=== PATIENT | male | born 1975 | race Caucasian/White ===

== ENCOUNTER 2017-01-18 23:44 | Emergency (ER) | payer BC ==
[2017-01-19 01:22] VITALS: BP 159/84
[2017-01-19] MEDS ORDERED: Ketorolac INJ* 30 MG/ML 1 ML VIAL ONE (02:00)
[2017-01-19] MEDS ORDERED: Ketorolac INJ* 30 MG/ML 1 ML VIAL IM ONE (02:07)
[2017-01-19] MEDS: Ketorolac INJ* 30 MG/ML 1 ML VIAL IV PUSH ONE ×2 (02:11→02:14)
[2017-01-19 03:25] LABS: Urine Bacteria Absent (Absent); Urine Bilirubin Negative (Negative); Urine Glucose 3+(>=500 mg/dL) (Negative); Urine Nitrite Negative (Negative)
--- NOTE | 2017-01-19 03:55 | ED ---
Ben Araya Salem, scribed for Devendra Guillen MD on 01/19/17 at 0141 . GI/ HPI - HPI Summary HPI Summary: Patient is a 41 y/o M who presents to the ED with right testicle pain for the past few days, worse since 2329 today. He denies fever, N/V, or changes in urination. He states that he saw his PCP for complaint and was prescribed abx. He also states that current pain is similar to previous episode, but worse. He reports taking Ibuprofen for pain with little to no alleviation. NKDA. - History of Current Complaint Chief Complaint: EDUrogenitalProblems Time Seen by Provider: 01/19/17 00:59 Stated Complaint: RIGHT TESTICLE PAIN Hx Obtained From: Patient Onset/Duration: Started Days Ago, Atraumatic, Still Present Timing: Constant, Lasting Days Severity: Moderate Current Severity: Moderate Pain Intensity: 9 Additional Locations for Males: Testicles Associated Signs and Symptoms: Positive: Negative Aggravating Factor(s): Nothing Alleviating Factor(s): Nothing - Allergy/Home Medications Allergies/Adverse Reactions: Allergies Allergy/AdvReac Type Severity Reaction Status Date / Time No Known Allergies Allergy Verified 01/19/17 00:04 Home Medications: Home Medications Amlodipine Besylate-Atorvastat [Amlodipine Besylate/Atorv 5-20 mg-] 1 tab PO DAILY 01/19/17 [History Confirmed 01/19/17] Apremilast [Otezla] 30 mg PO BID 01/19/17 [History Confirmed 01/19/17] PMH/Surg Hx/FS Hx/Imm Hx Endocrine/Hematology History: Reports: Hx Diabetes Denies: Hx Thyroid Disease Cardiovascular History: Reports: Hx Hypercholesterolemia, Hx Hypertension, Other Cardiovascular Problems/Disorders - Hx HTN Denies: Hx Pacemaker/ICD, Hx Peripheral Vascular Disease Respiratory History: Reports: Hx Sleep Apnea Denies: Hx Asthma GI History: Reports: Hx Gastroesophageal Reflux Disease - ON MEDS FOR PREVENTIVE R/T PAIN MEDS History: Denies: Hx Renal Disease Musculoskeletal History: Reports: Hx Arthritis Denies: Hx Rheumatoid Arthritis, Hx Osteoporosis Sensory History: Reports: Hx Contacts or Glasses Denies: Hx Cataracts, Hx Glaucoma, Hx Hearing Aid Opthamlomology History: Reports: Hx Contacts or Glasses Denies: Hx Cataracts, Hx Glaucoma Neurological History: Reports: Hx Nerve Disease - SHINGLES HX NONE PRESENTLY Denies: Hx Headaches, Hx Seizures, Hx Transient Ischemic Attacks (TIA) Psychiatric History: Reports: Other Psychiatric Issues/Disorders - insomnia Denies: Hx Anxiety, Hx Depression, Hx Panic Disorder - Surgical History Surgery Procedure, Year, and Place: GASTRIC BYPASS 11/2014 [facility] Hx Anesthesia Reactions: No Infectious Disease History: No Infectious Disease History: Denies: Traveled Outside the [place] in Last 30 Days - Family History Known Family History: Negative: Cardiac Disease, Hypertension - Social History Alcohol Use: Rare Alcohol Amount: 1 DRINK Q 3 MONTH Hx Substance Use: No Substance Use Type: Reports: None Hx Tobacco Use: No Smoking Status (MU): Never Smoked Tobacco Review of Systems Negative: Fever Negative: Vomiting, Nausea Genitourinary: Other - No changes in urination. Positive: other - Right testicle pain. All Other Systems Reviewed And Are Negative: Yes Physical Exam Triage Information Reviewed: Yes Vital Signs On Initial Exam: Initial Vitals Temp Pulse Resp BP Pulse Ox 98.2 F 79 16 150/83 99 01/19/17 00:00 01/19/17 00:00 01/19/17 00:00 01/19/17 00:00 01/19/17 00:00 Vital Signs Reviewed: Yes Appearance: Positive: Well-Appearing, Pain Distress - mild discomfort Skin: Positive: Warm Head/Face: Positive: Normal Head/Face Inspection Eyes: Positive: SOTERO ENT: Positive: Hearing grossly normal Neck: Positive: Supple Respiratory/Lung Sounds: Positive: Breath Sounds Present Cardiovascular: Positive: RRR Abdomen Description: Positive: Nontender, Soft. Negative: CVA Tenderness (R), CVA Tenderness (L) Bowel Sounds: Positive: Present Male Genital Exam: Positive: normal genitalia, testicular tenderness (R) - mild. Negative: testicular tenderness (L) Musculoskeletal: Positive: Strength/ROM Intact Neurological: Positive: Normal Gait - York Coma Scale Coma Scale Total: 15 Diagnostics - Vital Signs Vital Signs Temp Pulse Resp BP Pulse Ox 01/19/17 01:19 99.2 F 63 16 159/84 100 01/19/17 00:00 98.2 F 79 16 150/83 99 - Laboratory Lab Results: Lab Results 01/19/17 Range/Units 02:45 Urine Color Yellow Urine Appearance Clear Urine pH 5.0 (5-9) Ur Specific [place] 1.021 (1.010-1.030) Urine Protein Negative (Negative) Urine Ketones Negative (Negative) Urine Blood 1+ H (Negative) Urine Nitrate Negative (Negative) Urine Bilirubin Negative (Negative) Urine Urobilinogen Negative (Negative) Ur Leukocyte Esterase Negative (Negative) Urine WBC (Auto) Trace(0-5/hpf) (Absent) Urine RBC (Auto) 1+(3-5/hpf) H (Absent) Ur Squamous Epith Cells Present H (Absent) Urine Bacteria Absent (Absent) Urine Glucose 3+(>=500 mg/dl) H (Negative) Lab Statement: Any lab studies that have been ordered have been reviewed, and results considered in the medical decision making process. - Ultrasound No standard instances Ultrasound Interpretation Completed By: Radiologist - Impression: Normal appearance of both testis and both epididymides with normal vascular flow seen bilaterally. No hydrocele seen. Small left varicocele noted. Re-Evaluation - Re-Evaluation First Eval Re-Evaluation Time: 03:56 Comment: Reviewed imaging results d/w pt GIGU Course/Dx - Course Course Of Treatment: 41 y/o M presents with right testicle pain for the past few days, worse since 0 today. He denies fever, N/V, or changes in urination. He states that he saw his PCP for complaint and was prescribed abx. He also states that current pain is similar to previous episode, but worse. Pt received Toradol in ED course. US shows, per radiology, Impression: Normal appearance of both testis and both epididymides with normal vascular flow seen bilaterally. No hydrocele seen. Small left varicocele noted. Pt will be discharged to follow up with urology. - Diagnoses Provider Diagnoses: Testicular pain Discharge - Discharge Plan Condition: Stable Disposition: HOME Patient Education Materials: Testicle Pain (ED) Referrals: Fco Richard MD [Primary Care Provider] - Brian Javed MD [Medical Doctor] - Additional Instructions: Please follow up with Dr. Javed. The documentation as recorded by the Ben scott Salem accurately reflects the service I personally performed and the decisions made by me, Devendra Guillen MD.
--- NOTE | 2017-01-19 09:28 | RAD ---
Indication: Right testis pain Real-time sonography of the right testis was performed. The right testis measures 3.7 x 2.4 x 2.4 cm. No intratesticular masses are noted. Normal flow is noted in the right testis. The epididymis measures 10 x 14 mm. No hydrocele is noted. The left testis measures 3.8 x 2.6 x 2.3 cm. Normal flow is noted in the left testis. Epididymis measures 12 x 11 mm and appears slightly heterogeneous. However no evidence of hypervascularity is noted. Tubular vascular structures noted in the left testis likely represents a small varicocele. IMPRESSION: Findings consistent with small left varicocele. No intratesticular masses are noted.
== END 2017-01-19 04:35 | disposition home or self-care (01) ==
LOC: ED 23:44
DX: N50.811 Right testicular pain (principal); E11.9 Type 2 diabetes mellitus without complications; E78.00 Pure hypercholesterolemia, unspecified; I10 Essential (primary) hypertension; K21.9 Gastro-esophageal reflux disease without esophagitis; Z98.84 Bariatric surgery status
CPT/HCPCS: 76870; 81003; 81015; 96372; 99282; J1885

== ENCOUNTER 2017-01-22 07:21 | Day surgery (SDC) | payer BC ==
[2017-01-22] MEDS ORDERED: Iohexol 180 (CONTRAST) 10 ML SDV IV ONE (08:44)
--- NOTE | 2017-01-22 09:39 | HP ---
CC: Dr. Richard* HISTORY AND PHYSICAL: DATE OF PLANNED ADMISSION AND SURGERY: 01/22/17 HISTORY OF PRESENT ILLNESS: Mr. Garcia is a 41-year-old white male who is admitted with a 1-cm calculus in the proximal right ureter for cystoscopy and placement of right ureteral stent. Mr. Garcia's symptoms started about 1 month ago when he had recurrent episodes of acute right testicular pain. He was treated as a case of epididymitis with a course of Cipro. The pain improved spontaneously. The same pain recurred about 4 days ago and was severe enough for him to go to the [facility] [place] emergency room. There was no associated flank pain or nausea or vomiting. His urinalysis shows +1 blood and was negative otherwise. The patient was worked up for the testicular pain with a scrotal ultrasound, which was normal. The patient was sent home from the emergency room with pain medications. He presented to our office for evaluation. His urinalysis was negative. His exam and in particular the scrotal exam was completely normal. Because of suspicion that his right testicular pain is referred in nature, he had a renal ultrasound in the office. The study showed a 1-cm calculus in the proximal right ureter just distal to the ureteropelvic junction associated with mild to moderate right hydronephrosis and decreased right ureteral jets. The left kidney looked normal. PAST MEDICAL HISTORY AND SYSTEMIC REVIEW: The patient has chronic arthritis and he is maintained on methotrexate weekly, Otezla 30 mg daily, naproxen 400 mg twice a day. He has history of hypertension, on Lotrel 5-20 mg daily. He has history of ADD and depression and is maintained on Adderall and Wellbutrin. He is on tramadol ER as needed. He denies any cardiac or pulmonary diseases or symptoms. ALLERGIES: He denies any allergies to medications. PHYSICAL EXAMINATION GENERAL: Moderately overweight, otherwise healthy looking white male who seems to be in moderate pain. VITAL SIGNS: Blood pressure 140/88, pulse of 94, temperature 96.7. LUNGS: Clear. HEART: Regular and rhythmic, no murmurs. ABDOMEN: Soft. No masses and no CVA tenderness. GENITALIA: External genitalia is circumcised. No penile lesions. Normal testes. No testicular masses are felt. No inguinal hernias noted. LABORATORY DATA: Urinalysis is negative. IMPRESSION: Recurrent episodes of acute right testicular pain, which is referred pain from his 1 cm obstructing calculus at the right ureteropelvic junction. PLAN: Cystoscopy and placement of right ureteral stent. The patient will need another procedure, most likely shockwave lithotripsy at a later date for definitive treatment of the stone. [id number]/CPS #: [id number] MTDD
[2017-01-22] MEDS ORDERED: cefTRIAXone VIAL(*) 1,000 MG VIAL ONE (09:48)
--- NOTE | 2017-01-22 10:10 | RAD ---
Amended report to correct patient account number. INDICATION: RIGHT side ureteral stent placement. Nephrolithiasis. COMPARISON: No relevant prior exams available on the [facility] [place] [place] PACS for comparison. TECHNIQUE: 10 seconds fluoroscopy. FINDINGS: RIGHT retrograde pyelogram demonstrates mild calyceal blunting. RIGHT ureteral stent placed with decompression of the collecting system. IMPRESSION: Procedural fluoroscopy. CPT II Codes: 6045F MTDD
[2017-01-22 10:16] VITALS: BP 122/72
[2017-01-22] MEDS ORDERED: Tamsulosin CAP* 0.4 MG PO ONE (11:00)
--- NOTE | 2017-01-22 11:19 | RAD ---
Indication: Postop RIGHT ureteral stent placement. Comparison: Intraoperative fluoroscopic spot images of the same date. Technique: Supine view of the abdomen. Report: Unremarkable bowel gas pattern. Moderate stool in the colon without significant rectal distension. RIGHT ureteral stent in place. Typical partial obscuration of the renal fossa due to bowel contents. 1.0 cm ovoid density at the level of the lower pole calyx of the RIGHT kidney may represent a stone or residual pyelographic phase contrast within a calyx. Pelvic phleboliths noted. Unremarkable soft tissue contours. IMPRESSION: RIGHT ureteral stent in place. 1.0 cm ovoid density at the level of the lower pole calyx of the RIGHT kidney may represent a stone or residual pyelographic phase contrast within a calyx.
--- NOTE | 2017-01-22 12:19 | OP ---
CC: Dr. Fco Richard; Dr. Brian Javed * DATE OF OPERATION: 01/22/17 - [facility] DATE OF : 73 SURGEON: Brian Javed MD ANESTHESIOLOGIST: Enrico Browne DO ANESTHESIA: Intravenous sedation. PRE-OP DIAGNOSES: 1. Right hydronephrosis. 2. Obstructing calculus, right proximal ureter. POST-OP DIAGNOSES: 1. Right hydronephrosis. 2. Obstructing calculus, right proximal ureter. OPERATIVE PROCEDURE: Cystoscopy, right retrograde pyelogram, right ureteral calculus manipulation, and right stent insertion. INDICATIONS: Rd Garcia is a 41-year-old gentleman, who was evaluated and noted to have obstructing calculus in the right proximal ureter causing severe right flank pain. He is being brought in for urgent right stent insertion to be followed at some point in the near future by lithotripsy. COMPLICATIONS: None. STENT USED: 6-New Zealander stent, right ureter. POSTOPERATIVE CONDITION: Stable. DESCRIPTION OF PROCEDURE: After administration of intravenous sedation, the patient was placed in dorsal lithotomy position. Sequential compression devices were in place and functioning. Initial cystoscopy revealed a normal- appearing urethra and oexv-zl-pbbovgok enlargement predominantly of the median lobe of the prostate and normal-appearing bladder. Hydrophilic Glidewire was introduced and advanced under fluoroscopic monitoring. The calculus was noted to be obstructing at the level of the ureteropelvic junction and the wire was manipulated above the point of obstruction. Retrograde pyelogram revealed right hydronephrosis with a dilated renal pelvis and after the calculus had been manipulated proximally, a 6- New Zealander stent was introduced and positioned under fluoroscopy with good proximal and distal positioning obtained. The bladder was emptied. The patient tolerated the procedure satisfactorily and was transferred back to the recovery area in stable condition. [id number]/[facility] #: [id number] [facility]
== END 2017-01-22 11:00 | disposition home or self-care (01) ==
LOC: OR 07:21
PROVIDERS: ATTEND Urology
DX: N13.2 Hydronephrosis with renal and ureteral calculous obstruction (principal); Z96.0 Presence of urogenital implants; M19.90 Unspecified osteoarthritis, unspecified site; I10 Essential (primary) hypertension; F32.9 Major depressive disorder, single episode, unspecified; F98.8 Other specified behavioral and emotional disorders with onset usually occurring in childhood and adolescence
CPT/HCPCS: 74000; 74420; C1876; J0696

== ENCOUNTER 2017-02-04 08:14 | Day surgery (SDC) | payer BC ==
[~2017-02-04 08:14] MED LIST: Buffered Lidocaine 0.9% SYRIN* 5 ML/SYR SYRINGE INTRADERM ONE; Dexamethasone IV* 4 MG/ML 1 ML (4 MG) IV SLOW PU ONE; Famotidine IV* 10 MG/ML 2 ML (20 mg) IV ONE
[2017-02-04] MEDS ORDERED: Dexamethasone IV* 4 MG/ML 1 ML (4 MG) ONE (08:18)
[2017-02-04] MEDS ORDERED: Famotidine IV* 10 MG/ML 2 ML (20 mg) ONE (08:18)
[2017-02-04] MEDS ORDERED: cefTRIAXone(*) 2 GM ADDV.VIAL IVPB ONE (08:19)
[2017-02-04] MEDS ORDERED: Midazolam* 1 MG/ML 5 ML VIAL (5 MG) ONE (10:41)
[2017-02-04] MEDS ORDERED: fentaNYL* 50 MCG/ML 2 ML VIAL (100 MCG VIAL) ONE ×2 (10:41→11:31)
[2017-02-04] MEDS ORDERED: Ondansetron INJ* 2 MG/ML VIAL IV PRN (10:55)
[2017-02-04] MEDS ORDERED: oxyCODONE/Acetamin 5/325 MG* TAB PO PRN (10:55)
[2017-02-04] MEDS ORDERED: Ondansetron INJ* 2 MG/ML VIAL ONE (11:06)
[2017-02-04] MEDS ORDERED: Ketorolac INJ* 30 MG/ML 1 ML VIAL ONE (11:06)
[2017-02-04] MEDS ORDERED: Propofol* 10 MG/ML 20 ML BTL IV PUSH ONE ×2 (11:06→11:51)
[2017-02-04] MEDS ORDERED: KETAMINE HCL* 50 MG/ML 10 ML VIAL ONE (11:32)
[2017-02-04] MEDS ORDERED: Lidocaine 2% JELLY* 6 ML JELLY TOPICAL ONE (11:42)
[2017-02-04] MEDS ORDERED: Lidocaine 2% JELLY* 20 ML (for OR use) ONE (11:46)
[2017-02-04 12:32] VITALS: BP 131/80
--- NOTE | 2017-02-05 12:18 | OP ---
CC: Dr. Fco Richard * DATE OF OPERATION: 02/04/17 - [facility] DATE OF : 73 SURGEON: Cedrick Vuong MD ANESTHESIOLOGIST: Nic Sanchez MD ANESTHESIA: IV sedation with MAC. PRE-OP DIAGNOSES: 1. Right renal calculus (1 cm). 2. Status post placement right ureteral stent. POST-OP DIAGNOSES: 1. Right renal calculus (1 cm). 2. Status post placement right ureteral stent. OPERATIVE PROCEDURE: Shock wave lithotripsy of right renal calculus. INDICATIONS: Mr. Garcia is a 41-year-old white male, who was admitted on because of an obstructing 1-cm proximal right ureteral calculus. He had placement of right ureteral stent. Postoperative imaging showed the stone to have migrated into a lower pole infundibulum or lower pole calyx. He is now admitted for the above procedure. PATHOLOGY: Fluoroscopy showed the right ureteral stent to be in good position and a 1-cm radiopaque calculus in the lower pole calyx or infundibulum of the Rt kidney. No other abnormal calcifications were seen. DESCRIPTION OF PROCEDURE: The patient was placed in the supine position on the shock wave lithotripsy table. Under intravenous sedation with anesthesia monitoring, the right renal calculus was visualized in both the PA and the oblique x-ray views and the position of the stone and of the generator were adjusted to have the stone in the focus of the shock waves. A total of 2,400 shocks were then delivered at a rate of 90 shocks per minute. A 3- minute break was taken after the initial 300 shocks. The proper positioning and fragmentation of the stone were monitored periodically. At the completion of the treatment, the stone seemed to have become larger and less dense. However, I did not feel comfortable enough with the degree of fragmentation to remove the stent. The patient tolerated the procedure well and left the operating room in good condition. The plan is to obtain a KUB in about 2 days and the patient will be seen in the office. Decision will be made regarding the stent removal. [id number]/CPS #: [id number] MTDD
== END 2017-02-04 12:35 | disposition home or self-care (01) ==
LOC: OR 08:14
PROVIDERS: ATTEND Urology
DX: N20.0 Calculus of kidney (principal); E66.9 Obesity, unspecified; I48.91 Unspecified atrial fibrillation; I10 Essential (primary) hypertension; G47.33 Obstructive sleep apnea (adult) (pediatric); E11.9 Type 2 diabetes mellitus without complications
CPT/HCPCS: J0696; J1100; J1885; J2250; J2405; J2704; J3010

== ENCOUNTER → 2017-02-15 14:55 | Day surgery (SDC) | payer BC ==
--- NOTE | 2017-02-15 13:04 | HP ---
CC: Dr. Richard * HISTORY AND PHYSICAL: DATE OF PLANNED ADMISSION AND SURGERY: 02/15/17 HISTORY OF PRESENT ILLNESS: Mr. Garcia is a 41-year-old white male, who is admitted with distal right ureteral calculus for cystoscopy, right ureteroscopy , laser lithotripsy, and right ureteral stent placement. Mr. Garcia presented about a month ago with symptoms of right renal colic and was found to have a 1 cm calculus in the proximal right ureter. On , he had urgent placement of right ureteral stent. The stone migrated into the lower pole garry of the right kidney. On 02/04/17, he underwent shockwave lithotripsy of the right renal calculus. It was not clear whether the stone fragmented at the end of the treatment. He was then evaluated in our office and had a renal ultrasound, which was suggestive of fragmentation of the stone. The right ureteral stent was removed on 02/06/17. The patient presented yesterday to the office complaining of recurrent episodes of right renal colic. He did not have any fever or chills. KUB yesterday showed a 1 cm calculus in the proximal right ureter and another 8 mm calculus in the right kidney. The patient was managed conservatively with alpha blockers and pain medications and he was reevaluated today with another KUB. The KUB showed the stone to be located at the right ureterovesical junction. The patient however has been having recurrent episodes of right renal colic and has been taking narcotics every 6 hours. Because of the size of the stone (1 cm) and the fact it is at the right uretero- vesical junction and it is unlikely to pass spontaneously, plan is to proceed with the above procedure. PAST MEDICAL HISTORY AND SYSTEM REVIEW: The patient had history of obesity and had a gastric bypass as bariatric surgery. He has a history of hypertension, maintained on Lotrel 5/20 mg daily. He has a history of ADD and depression and is maintained on Adderall and Wellbutrin. Because of his chronic arthritis, he is maintained on weekly methotrexate and on Otezla 30 mg daily and Naprosyn 400 mg twice a day. He denies any cardiac or pulmonary diseases or symptoms. ALLERGIES: He denies any allergies to medications. PHYSICAL EXAMINATION GENERAL: Moderately overweight white male, who is in moderate pain. VITAL SIGNS: Blood pressure 150/90, pulse of 100, temperature 96.8. LUNGS: Normal. HEART: Normal. ABDOMEN: He has peelycev-tf-umtaji right CVA tenderness and right upper quadrant tenderness. IMPRESSION: A 1 cm calculus at the right ureterovesical junction, status post shockwave lithotripsy 2 weeks ago. Probable residual right renal calculus. PLAN: Considering the size of the stone and that it is located at the UVJ, it is unlikely to pass spontaneously. Considering the patient is having recurrent episodes of acute pain, the plan is to proceed with right ureteroscopy, laser lithotripsy, and left ureteral stent placement. Dr. Javed is on-call for the practice today and he will be doing the procedure. [id number]/CPS #: [id number] MTDD
[~2017-02-15 14:55] MED LIST changes: -Buffered Lidocaine 0.9% SYRIN* 5 ML/SYR SYRINGE INTRADERM ONE; +Buffered Lidocaine 0.9% SYRIN* 5 ML/SYR SYRINGE ONE; +DEXAMETHASONE IVPB ONE; -Dexamethasone IV* 4 MG/ML 1 ML (4 MG) IV SLOW PU ONE; +Dexamethasone IV* 4 MG/ML 1 ML (4 MG) ONE; -Famotidine IV* 10 MG/ML 2 ML (20 mg) IV ONE; +Famotidine IV* 10 MG/ML 2 ML (20 mg) IV SLOW PU ONE; +Famotidine IV* 10 MG/ML 2 ML (20 mg) ONE; +HYDROcodone/ACETAMIN 5-325 MG* 1 TAB PO PRN; +Iohexol 180 (CONTRAST) 10 ML SDV IV ONE; +Lidocaine 2% PF * 5 ML VIAL ONE; +Midazolam* 1 MG/ML 5 ML VIAL (5 MG) ONE; +NS 0.9% IVPB ONE; +Ondansetron INJ* 2 MG/ML VIAL ONE; +PROCHLORPERAZINE INJ 5 MG/ML 2 ML VIAL IV PRN; +Propofol* 10 MG/ML 20 ML BTL IV PUSH ONE; +Tamsulosin CAP* 0.4 MG ONE; +fentaNYL* 50 MCG/ML 2 ML VIAL (100 MCG VIAL) IV PRN; +fentaNYL* 50 MCG/ML 2 ML VIAL (100 MCG VIAL) ONE; +oxyCODONE/Acetamin 5/325 MG* TAB PO PRN
[2017-02-15 18:32] VITALS: BP 154/89
--- NOTE | 2017-02-15 19:42 | RAD ---
INDICATION: The patient is status post right ureteral stent placement COMPARISON: Similar examination dated 1117 acquired before stent placement TECHNIQUE: 2 views the abdomen were obtained. FINDINGS: There has been interval placement of an anatomically aligned right ureteral stent. No large calcifications are identified. IMPRESSION: ANATOMIC ALIGNMENT OF RIGHT URETERAL STENT.
--- NOTE | 2017-02-15 19:44 | RAD ---
CPT II Codes: 6045F INDICATION: Right-sided hydronephrosis TECHNIQUE: Intraoperative fluoroscopy was provided during right retrograde pyelogram with stent placement. FINDINGS: 4 spot films depict retrograde pyelography showing mild hydronephrosis and anatomic placement of a right ureteral stent.. Fluoroscopy time: 4 seconds IMPRESSION: As above.
--- NOTE | 2017-02-16 05:32 | OP ---
CC: Dr. Fco Richard * DATE OF OPERATION: 02/15/17 - [facility] DATE OF : 73 SURGEON: Brian Javed MD ANESTHESIOLOGIST: Dr. Shetty. ANESTHESIA: General. PRE-OP DIAGNOSES: 1. Right hydronephrosis. 2. Calculus, right ureter. POST-OP DIAGNOSES: 1. Right hydronephrosis. 2. Calculus, right ureter. OPERATIVE PROCEDURE: Cystoscopy, right retrograde pyelogram, right ureteroscopy and laser lithotripsy, removal of calculus fragments from right ureter and right stent insertion. COMPLICATIONS: None. POSTOPERATIVE CONDITION: Stable. OPERATIVE FINDINGS: Fairly large hard calculus right distal ureter (8 to 9 mm) with right hydronephrosis and proximal hydroureter. STENT USED: 6-Italian stent, right ureter. INDICATIONS: Rd Garcia is a 41-year-old gentleman who had previously undergone stent insertion and lithotripsy for an obstructing calculus. He was recently evaluated and noted to have a fairly large calculus in the right distal ureter. He was given an option of trying to continue conservative management; but because of increased pain, he opted for and is now being brought in for right ureteroscopy. DESCRIPTION OF PROCEDURE: After induction of general anesthesia, the patient was placed in dorsal lithotomy position. Sequential compression devices were in place and functioning. Initial cystoscopy revealed a normal-appearing urethra. The bladder was examined and was normal. There was some inflammatory response noted surrounding the right orifice, but the bladder was otherwise unremarkable. A guidewire was introduced into the right ureter. Retrograde pyelogram revealed right hydronephrosis with proximal hydroureter. A 6-Italian semirigid ureteroscope was introduced and advanced under direct vision. A few centimeters above the ureterovesical junction, a 9 to 10 mm calculus was noted. Using a 550 micron Holmium laser, this was fragmented. The stone was fairly large and very hard and after about 15 to 20 minutes of laser lithotripsy, it eventually fragmented into multiple pieces. Using a 3-pronged grasper, all of the pieces were successfully retrieved. A 6-Italian stent was introduced and positioned under fluoroscopy with good proximal and distal positioning obtained. The bladder was emptied. The patient tolerated the procedure satisfactorily and was transferred back to the recovery area in stable condition. [id number]/[facility] #: [id number] [facility]
== END | disposition home or self-care (01) ==
LOC: OR 14:55
PROVIDERS: ATTEND Urology
DX: N13.2 Hydronephrosis with renal and ureteral calculous obstruction (principal); I10 Essential (primary) hypertension; M06.9 Rheumatoid arthritis, unspecified
CPT/HCPCS: 74000; 74420; 82365; 88300; C1876; J1100; J1580; J2250; J2405; J2704; J3010

== ENCOUNTER 2017-08-19 07:34 | Day surgery (SDC) | payer BC ==
[~2017-08-19 07:34] MED LIST changes: +Buffered Lidocaine 0.9% SYRIN* 5 ML/SYR SYRINGE INTRADERM ONE; -Buffered Lidocaine 0.9% SYRIN* 5 ML/SYR SYRINGE ONE; -DEXAMETHASONE IVPB ONE; -Dexamethasone IV* 4 MG/ML 1 ML (4 MG) ONE; +Famotidine IV* 10 MG/ML 2 ML (20 mg) IV ONE; -Famotidine IV* 10 MG/ML 2 ML (20 mg) IV SLOW PU ONE; -Famotidine IV* 10 MG/ML 2 ML (20 mg) ONE; -HYDROcodone/ACETAMIN 5-325 MG* 1 TAB PO PRN; -Iohexol 180 (CONTRAST) 10 ML SDV IV ONE; -Lidocaine 2% PF * 5 ML VIAL ONE; -Midazolam* 1 MG/ML 5 ML VIAL (5 MG) ONE; -NS 0.9% IVPB ONE; -Ondansetron INJ* 2 MG/ML VIAL ONE; -PROCHLORPERAZINE INJ 5 MG/ML 2 ML VIAL IV PRN; -Propofol* 10 MG/ML 20 ML BTL IV PUSH ONE; -Tamsulosin CAP* 0.4 MG ONE; -fentaNYL* 50 MCG/ML 2 ML VIAL (100 MCG VIAL) IV PRN; -fentaNYL* 50 MCG/ML 2 ML VIAL (100 MCG VIAL) ONE; -oxyCODONE/Acetamin 5/325 MG* TAB PO PRN
[2017-08-19] MEDS ORDERED: Famotidine IV* 10 MG/ML 2 ML (20 mg) ONE (07:38)
[2017-08-19] MEDS ORDERED: ceFAZolin 2 GM PREMIX (*) 2 GM/50 ML BAG IVPB ONE (07:39)
[2017-08-19] MEDS ORDERED: Buffered Lidocaine 0.9% SYRIN* 5 ML/SYR SYRINGE ONE (07:39)
[2017-08-19] MEDS ORDERED: Ketorolac INJ* 30 MG/ML 1 ML VIAL ONE (07:45)
[2017-08-19] MEDS ORDERED: Midazolam* 1 MG/ML 2 ML VIAL (2 MG) ONE ×2 (07:45→08:52)
[2017-08-19] MEDS ORDERED: Lidocaine 2% PF * 5 ML VIAL ONE (07:45)
[2017-08-19] MEDS ORDERED: fentaNYL* 50 MCG/ML 2 ML VIAL (100 MCG VIAL) ONE (07:45)
[2017-08-19] MEDS ORDERED: Ondansetron INJ* 2 MG/ML VIAL ONE (07:45)
[2017-08-19] MEDS ORDERED: Propofol* 10 MG/ML 20 ML BTL IV PUSH ONE (07:45)
[2017-08-19] MEDS ORDERED: Naloxone* 0.4 MG/ML 1 ML VIAL IV PRN (08:29)
[2017-08-19] MEDS ORDERED: DiMENhydriNATE IV* 50 MG/ML VIAL IV PUSH PRN (08:29)
[2017-08-19] MEDS ORDERED: Acetaminophen TAB* 325 MG PO PRN (08:29)
[2017-08-19] MEDS ORDERED: Bupivacaine 0.25% SDV* 30 ML ONE (08:31)
[2017-08-19 09:54] VITALS: BP 110/62
--- NOTE | 2017-08-24 12:46 | OP ---
DATE OF OPERATION: 08/19/17 - [facility] DATE OF : 73 SURGEON: Darwin Huynh MD. GREY IRON MOLDER: JUAN A Cespedes. ANESTHESIOLOGIST: Radha Andrade MD ANESTHESIA: Local MAC. PRE-OP DIAGNOSIS: Left de Quervain's tenosynovitis. POST-OP DIAGNOSIS: Left de Quervain's tenosynovitis. OPERATIVE PROCEDURE: Left de Quervain's release. INDICATIONS: Rd has had an injection. He got 100% better. The tendinitis has come back. We talked about risks and benefits. He wanted to proceed. ESTIMATED BLOOD LOSS: 2 mL. COMPLICATIONS: None. FINDINGS: As expected. DESCRIPTION OF PROCEDURE: Rd was seen in the preoperative holding area, the correct side, site, and procedure were identified. We came back to the operating room where the arm was prepped and draped in usual fashion. A time- out was performed. I made a 2-cm transverse incision just proximal to the radial styloid. Dissection was carried down bluntly and full thickness flaps were raised off of the tendon sheath. The tendon sheath was opened along the dorsal aspect in line with the tendons. The release was completed distally and proximally with the tenotomy scissors and tenosynovitis was excised. There was a small ganglion on the tendon sheath that was excised as well. The accessory compartment was released and the septum excised. Once there was absolutely no compression on the tendons, we irrigated out the wounds. Skin was closed with 4 -0 Monocryl suture and Steri- Strips. Wound was dressed with Xeroform, 4 x 4s, and sterile Webril, and an bandage. He was taken to recovery room in stable condition. [id number]/[facility] #: [id number] [facility]
== END 2017-08-19 09:57 | disposition home or self-care (01) ==
LOC: OR 07:34
PROVIDERS: ATTEND Orthopaedic Surgery Hand Surgery
DX: M65.4 Radial styloid tenosynovitis [de Quervain] (principal); I10 Essential (primary) hypertension; G47.33 Obstructive sleep apnea (adult) (pediatric); L40.50 Arthropathic psoriasis, unspecified
CPT/HCPCS: J0690; J1885; J2250; J2405; J2704; J3010

== ENCOUNTER 2020-11-25 08:36 | Inpatient (IN) ==
[2020-11-25 09:10] LABS: ABS Basophils 0.1 10^3/ul (0-0.2); ABS Eosinophils 0.1 10^3/ul (0-0.6); ABS Lymphocytes 1.5 10^3/ul (1.0-4.8); ABS Monocytes 0.5 10^3/ul (0-0.8); ABS Neutrophils 6.3 10^3/ul (1.5-7.7); Eosinophil % 1.6 %; Hematocrit 25 % (42-52); Hemoglobin 8.6 g/dL (14.0-18.0); Mean Corpuscular HGB Conc 34 g/dL (31-36); Mean Corpuscular Hemoglobin 31 pg (27-31); Mean Corpuscular Volume 91 fL (80-94); Mean Platelet Volume 6.8 fL (7.4-10.4); Platelet Count 336 10^3/uL (150-450); Red Cell Distribution Width 14 % (10-15); White Blood Count 8.6 10^3/uL (3.5-10.8)
[2020-11-25] MEDS ORDERED: NS 0.9% 1000 ml BAG 1,000 ML IV ONE (09:23)
[2020-11-25 09:27] LABS: ALT 21 U/L (7-52); AST 20 U/L (13-39); Albumin 3.7 g/dL (3.2-5.2); Albumin/Globulin Ratio 1.6 (1-3); Alkaline Phosphatase 84 U/L (35-149); Blood Urea Nitrogen 36 mg/dL (6-24); CO2 Carbon Dioxide 25 mmol/L (22-32); Calcium 8.6 mg/dL (8.6-10.3); Chloride 106 mmol/L (101-111); EGFR African American 71.3 (>60); EGFR Non-African American 58.9 (>60); Globulin 2.3 g/dL (2-4); Glucose 291 mg/dL (70-100); Sodium 137 mmol/L (135-145)
[2020-11-25 09:28] LABS: Anion Gap 6 mmol/L (2-11); INR 1.03 (0.82-1.09); Potassium 5.1 mmol/L (3.5-5.0)
[2020-11-25] MEDS ORDERED: Iodixanol (CONTRAST) 320 MG/ML 100 ML SDV IV ONE (09:58)
[2020-11-25] MEDS ORDERED: Dextrose 50% Syringe 50 ml 25 GM/50 ML SYRINGE IV PUSH PRN (11:43)
[2020-11-25] MEDS ORDERED: Ondansetron 4 mg VIAL 2 MG/ML 2 ml VIAL IV PRN (11:44)
[2020-11-25] MEDS ORDERED: Lactated Ringers 1000 ml BAG 1,000 ML IV ONE (11:45)
[2020-11-25 16:08] LABS: Hematocrit 22 % (42-52); Hemoglobin 7.3 g/dL (14.0-18.0)
[2020-11-25] MEDS ORDERED: Pantoprazole VIAL 40 MG VIAL IV ONE ×2 (17:17→17:45)
[2020-11-25] MEDS: Pantoprazole 80 mg in NS BAG 80 MG/250 ML BAG IV SCH (18:26)
[2020-11-25 21:52] LABS: Hematocrit 20 % (42-52); Hemoglobin 6.9 g/dL (14.0-18.0); Mean Corpuscular HGB Conc 35 g/dL (31-36); Mean Corpuscular Hemoglobin 31 pg (27-31); Mean Corpuscular Volume 91 fL (80-94); Mean Platelet Volume 7.1 fL (7.4-10.4); Platelet Count 249 10^3/uL (150-450); Red Blood Count 2.19 10^6 /uL (4.18-5.48); Red Cell Distribution Width 15 % (10-15); White Blood Count 6.8 10^3/uL (3.5-10.8)
[2020-11-26] MEDS: Pantoprazole 80 mg in NS BAG 80 MG/250 ML BAG IV SCH ×2 (04:17→15:43)
[2020-11-26] MEDS: LACTATED RINGERS 1000 ML BAG IV ONE ×2 (07:07→11:21)
[2020-11-26 07:22] LABS: ABS Eosinophils 0.2 10^3/ul (0-0.6); ABS Lymphocytes 1.4 10^3/ul (1.0-4.8); ABS Monocytes 0.4 10^3/ul (0-0.8); ABS Neutrophils 3.8 10^3/ul (1.5-7.7); Eosinophil % 2.7 %; Hematocrit 23 % (42-52); Hemoglobin 7.8 g/dL (14.0-18.0); Lymphocyte % 24.7 %; Mean Corpuscular HGB Conc 34 g/dL (31-36); Mean Corpuscular Hemoglobin 31 pg (27-31); Mean Corpuscular Volume 90 fL (80-94); Mean Platelet Volume 8.1 fL (7.4-10.4); Platelet Count 244 10^3/uL (150-450); Red Blood Count 2.51 10^6 /uL (4.18-5.48); Red Cell Distribution Width 15 % (10-15); White Blood Count 5.7 10^3/uL (3.5-10.8)
[2020-11-26 07:32] LABS: Blood Urea Nitrogen 25 mg/dL (6-24); CO2 Carbon Dioxide 21 mmol/L (22-32); Calcium 8.1 mg/dL (8.6-10.3); Chloride 109 mmol/L (101-111); EGFR African American 89.1 (>60); EGFR Non-African American 73.6 (>60); Glucose 126 mg/dL (70-100); Sodium 139 mmol/L (135-145)
[2020-11-26 07:35] LABS: Anion Gap 9 mmol/L (2-11)
[2020-11-26] MEDS ORDERED: Midazolam 10 mg/10 ml VIAL 1 mg/ml 10 ml VIAL (10 mg) ONE (10:33)
[2020-11-26] MEDS ORDERED: fentaNYL 100 mcg/2 ml 50 MCG/ML VIAL ONE (10:34)
[2020-11-26 15:00] LABS: Hematocrit 24 % (42-52)
[2020-11-26] MEDS ORDERED: PEG 3000 GI LAVAGE 1 GALLON PO ONE (16:30)
[2020-11-26 23:08] LABS: Hematocrit 23 % (42-52); Hemoglobin 7.9 g/dL (14.0-18.0)
[2020-11-27] MEDS: Pantoprazole 80 mg in NS BAG 80 MG/250 ML BAG IV SCH ×2 (02:32→17:02)
[2020-11-27 05:36] LABS: Hematocrit 21 % (42-52); Hemoglobin 7.1 g/dL (14.0-18.0)
[2020-11-27 05:55] LABS: Calcium 8.1 mg/dL (8.6-10.3); EGFR African American 107.2 (>60); EGFR Non-African American 88.6 (>60); Potassium 4.1 mmol/L (3.5-5.0)
[2020-11-27 11:39] LABS: % Iron Saturation 37 % (15-55); Iron 118 ug/dL (50-212); Total Iron Binding Capacity 323 mcg/dL (250-450); Transferrin 231 mg/dL (203-362); Unsaturated Iron Binding < 308 ug/dL
[2020-11-27 12:00] LABS: Ferritin 38.5 ng/mL (24-336)
[2020-11-27] MEDS ORDERED: Iron Sucrose 200 MG in NS 0.9% 100 ml BAG 100 ML IVPB ONE (12:30)
[2020-11-27] MEDS ORDERED: NS 0.9% 1000 ml BAG 1,000 ML IV ONE (15:27)
[2020-11-27] MEDS ORDERED: Lactated Ringers 1000 ml BAG 1,000 ML IV ONE (15:59)
[2020-11-27 16:50] LABS: Hematocrit 14 % (42-52); Hemoglobin 4.7 g/dL (14.0-18.0); Mean Corpuscular HGB Conc 35 g/dL (31-36); Mean Corpuscular Hemoglobin 32 pg (27-31); Mean Corpuscular Volume 91 fL (80-94); Mean Platelet Volume 7.3 fL (7.4-10.4); Platelet Count 225 10^3/uL (150-450); Red Blood Count 1.49 10^6 /uL (4.18-5.48); Red Cell Distribution Width 15 % (10-15); White Blood Count 8.2 10^3/uL (3.5-10.8)
[2020-11-27 16:56] LABS: Calcium 7.1 mg/dL (8.6-10.3); EGFR African American 97.3 (>60); EGFR Non-African American 80.4 (>60); Potassium 4.5 mmol/L (3.5-5.0)
[2020-11-27] MEDS ORDERED: Buffered Lidocaine 1% SYRIN 1 ml INTRADERM ONE (17:01)
[2020-11-27] MEDS ORDERED: NORMOSOL-R pH 7.4 1000 mL BAG 1,000 ML IV SCH (17:30)
[2020-11-27] MEDS ORDERED: Pantoprazole VIAL 40 MG VIAL IV SCH (18:00)
[2020-11-27 20:04] VITALS: BP 120/74
== END 2020-11-27 20:08 | disposition short-term general hospital (02) | DRG 254 ==
LOC: EDACCT# → ED 08:36 → SSU 11:39 → ICU 11-26 05:46 → SSU 11-26 15:10 → UNDODISIN 11-26 15:11 → ICU 11-27 15:45
PROVIDERS: ADMIT Student in an Organized Health Care Education/Training Program; ATTEND Internal Medicine